=== PATIENT | female | born 1935 | race Caucasian/White ===

== ENCOUNTER → 2017-03-25 | Outpatient (CLI) | payer OTHER ==
[~2017-03-25] MED LIST: ATIVAN0.5 MG PO; HYDROCODONE-AP1 EAC6 PO; IBUPROFEN 600600 M1 PO; LISINOPRIL10 MG PO; NORCO 5-325 TA1 EACH PO; TUMS PO; ZOCOR20 MG PO
[2017-03-25 11:17] LABS: ABSOLUTE EOSINOPHILS 0.1 thou/uL (0.0-0.7); ABSOLUTE MONOCYTES 0.5 thou/uL (0.0-1.2); ABSOLUTE NEUTROPHILS 4.4 thou/uL (1.6-8.1); BASOPHILS 0.6 %; EOSINOPHILS 1.4 %; HEMATOCRIT 39.7 % (37.0-47.0); HEMOGLOBIN 13.3 gm/dL (12.0-15.0); LYMPHOCYTES 17.1 %; MCH 29.2 pg (26.0-34.0); MCHC 33.5 g/dL (28.0-37.0); MCV 87.2 fL (80.0-100.0); MONOCYTES 7.6 %; MPV 7.1 fl. (7.2-11.1); NUCLEATED RBCS 0 /100WBC; PLATELET COUNT* 264 thou/uL (150-400); POLYS 73.3 %; RBC 4.55 mil/uL (4.20-5.00); RDW-CV 13.2 % (10.5-14.5)
[2017-03-25 11:36] LABS: ALBUMIN 3.5 g/dL (3.4-5.0); CALCIUM 8.9 mg/dL (8.5-10.1); CREATININE 0.7 mg/dL (0.6-1.3); POTASSIUM 4.2 mmol/L (3.5-5.1); TOTAL BILIRUBIN 0.4 mg/dL (<0.1-1.0); TOTAL PROTEIN 6.6 g/dL (6.4-8.2)
== END ==
LOC: M.LAB 10:55
PROVIDERS: Specialist
DX: Z01.818 Encounter for other preprocedural examination (principal); I12.9 Hypertensive chronic kidney disease with stage 1 through stage 4 chronic kidney disease, or unspecified chronic kidney disease; N18.4 Chronic kidney disease, stage 4 (severe); N81.11 Cystocele, midline

== ENCOUNTER 2017-03-30 05:59 | Day surgery (SDC) | payer OTHER ==
[~2017-03-30] VITALS: Ht 167.6 cm; Wt 62.6 kg
--- NOTE | ~2017-03-30 | OP ---
[address] [address] OPERATIVE REPORT Name: JUAN LUIS ESCALANTE [id number] Admission: 03/30/17 Attend Phys: Branden Pierce MD Discharge: 03/31/17 Date of : 39 Report #: [id number] THIS REPORT FOR: //name// For details of the operative report, please see Dr. Pierce's post operative note. By: [facility] Records Staff [facility] /LYNDA
[~2017-03-30 05:59] MED LIST changes: -HYDROCODONE-AP1 EAC6 PO; -IBUPROFEN 600600 M1 PO; -NORCO 5-325 TA1 EACH PO
[2017-03-30 06:48] LABS: HEMATOCRIT 39.7 % (37.0-47.0); HEMOGLOBIN 13.5 gm/dL (12.0-15.0); MCHC 34.1 g/dL (28.0-37.0); MCV 84.9 fL (80.0-100.0); MPV 7.2 fl. (7.2-11.1); RBC 4.67 mil/uL (4.20-5.00); RDW-CV 13.2 % (10.5-14.5); WBC 4.8 thou/uL (4.0-11.0)
[2017-03-30 06:56] LABS: CALCIUM 8.9 mg/dL (8.5-10.1); CREATININE 0.8 mg/dL (0.6-1.3); POTASSIUM 3.7 mmol/L (3.5-5.1)
[2017-03-30 07:01] LABS: ALBUMIN 3.3 g/dL (3.4-5.0); TOTAL BILIRUBIN 0.3 mg/dL (<0.1-1.0); TOTAL PROTEIN 6.8 g/dL (6.4-8.2)
[2017-03-30 07:13] VITALS: BP 101/57
--- NOTE | 2017-03-30 10:38 | EKG ---
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
[2017-03-30 11:16] LABS: HEMATOCRIT 34.8 % (37.0-47.0); HEMOGLOBIN 11.7 gm/dL (12.0-15.0)
[2017-03-30 11:22] LABS: POTASSIUM 4.2 mmol/L (3.5-5.1)
[2017-03-30 12:09] VITALS: BP 134/49
--- NOTE | 2017-03-30 12:14 | NUR ---
PATIENT TRANSFERRED FROM PACU TO ROOM 113. ALERT AND ORIENTED. CANVASS MANAGER EDUCATION GIVEN. ICE CHIPS PROVIDED BY PACU STAFF. IVF INFUSING. SCD'S IN PLACE. O2 SAT 98% ON 2L. CONT PULSE OX IN PLACE. PETERSEN DRAINING YELLOW URINE. ORIENTED TO ROOM AND ENVIROMENT. CALL LIGHT WITHIN REACH. WILL CONTINUE TO MONITOR.
[2017-03-30 15:59] VITALS: BP 118/57
--- NOTE | 2017-03-30 16:42 | NUR ---
PATIENT REMAINS ALERT AND ORIENTED. PAIN CONTROLLED WITH DILAUDID NETEZZA ARCHITECT. MILD NAUSEA- WANTS TO TRY LIQUIDS TONIGHT. DR. LE CURRENTLY ROUNDING AND NOTIFIED OF REQUEST TO EAT. PETERSEN IN PLACE WITH YELLOW URINE. VAGINAL PACKING IN PLACE- TO BE REMOVED IN AM. DAUGHTER AT BEDSIDE. CALL LIGHT WITHIN REACH. WILL CONTINUE TO MONITOR.
[2017-03-30 20:35] VITALS: BP 141/71
[2017-03-31 00:33] VITALS: BP 148/64
[2017-03-31 04:06] VITALS: BP 146/69
--- NOTE | 2017-03-31 05:24 | NUR ---
PATIENT ALERT AND ORIENTED. VITALS STABLE. ON 2L OF OXYGEN. 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 SCHEDULED TORADOL GIVEN. VOMITED MINIMAL AMOUNT OF CLEAR EMESIS. REGLAN GIVEN. ICE CHIPS GIVEN SPARINGLY THROUGH THE NIGHT. PETERSEN TO DEPENDENT DRAINAGE. FLUIDS INFUSING PER ORDER. HOURLY ROUNDS. NURSING WILL CONTINUE TO MONITOR.
[2017-03-31 08:39] VITALS: BP 136/72
[2017-03-31 09:22] LABS: CALCIUM 8.7 mg/dL (8.5-10.1); CREATININE 0.7 mg/dL (0.6-1.3); POTASSIUM 4.6 mmol/L (3.5-5.1)
--- NOTE | 2017-03-31 12:34 | S ---
[address] [address] SURGICAL PATH RPT PROCEDURE Name: ERIN ESCALANTE Chely Room: [address]R.#: [id number] Admission: 03/30/17 Date of : 39 Discharge: Report #: [id number] Path Case #: [id number] PATHOLOGY REPORT COLLECTION DATE: 03/30/2017 RECEIVED DATE: 03/30/2017 SUBMITTING PHYS: Dr. Branden Pierce OTHER PHYS: Dr. José Miguel Cee SPECIMEN(S) RECEIVED: A.Uterus and cervix * * * * * * * * * * * * FINAL DIAGNOSIS: Uterus and cervix: 25 gram uterus (including cervix and without bilateral adnexa) with: Endometrium: - Atrophic pattern, negative for hyperplasia and atypia. Myometrium: - Prominent medial calcification of blood vessels. Cervix: - Atrophic features negative for dysplasia. (WOO:db; 03/31/2017) PATHOLOGIST: Dillon Rosario M.D. REPORT ELECTRONICALLY SIGNED BY: Dillon Rosario M.D. DATE/TIME: 03/31/2017 12:33 * * * * * * * * * * * * GROSS PATHOLOGY: Received in formalin labeled "Erin Escalante, uterus and cervix" and consists of a 25 g, 6.3 x 3.5 x 2.4 cm uterus/cervix. The serosa is smooth, glistening, and red boothe to brown. The ectocervix measures 2.3 cm in diameter. The ectocervical mucosa is glistening and pink. The squamocolumnar junction is slightly roughened and possibly ulcerated. The endocervix is glistening and boothe. The endometrial cavity measures 2.7 x 2.3 cm and contains one mL of tenacious clear to cloudy fluid. The endometrium is atrophic, boothe, glistening, and averages 0.1 cm thick. The myometrium averages 1.0 cm thick and appears grossly unremarkable. Hose Inspector sections are submitted A1-A6. A1-A2 cervix A3 CHRISTIN, transverse section A4-A6 endomyometrium (ALFA; 03/30/2017) [place] [address] SURGICAL PATH RPT PROCEDURE Name: AVAERIN Room: [address] M.R.#: [id number] Admission: 03/30/17 Date of : 39 Discharge: Report #: [id number] Path Case #: [id number] CLINICAL HISTORY: Uterine prolapse, cystocele midline INITIAL CPT CODE(S): A; 92771 Professional services performed by [facility] at [facility], [facility] [place] [address]. Technical services performed by [facility] at [address] [place] [address], [address], [place] [address]. [facility] [address] [address] PHONE: [phone] DIRECTOR: Logan Bolivar M.D. * * * END OF REPORT * * *
[2017-03-31 14:15] VITALS: BP 136/72
[2017-03-31] MEDS ORDERED: HYDROCODONE-AP1 EAC6 PO (14:17)
[2017-03-31] MEDS ORDERED: NORCO 5-325 TA1 EACH PO (14:28)
[2017-03-31] MEDS ORDERED: IBUPROFEN 600600 M1 PO (14:38)
--- NOTE | 2017-03-31 15:22 | NUR ---
PATIENT VERY ANXIOUS TO DISCHARGE. CALLED DR. SOARES AND DR. LE AND ORDERS TO DC PATIENT. PATIENT DID NOT WANT TO DISCUSS DC INSTRUCTIONS SHE SAID SHE KNEW ALL OF THEM, AND WOULD READ THEM AT HOME. IV REMOVED. PATIENT AMBULATED TO CAR WITH DAUGHTER. SCRIPT FOR MOTRIN SENT TO PHARMACY, AND SCRIPT FOR VICODIN GIVEN TO PATIENT AND DAUGHTER.
== END 2017-03-31 15:25 | disposition home or self-care (01) ==
LOC: EDBD → M.SUR → M.TBA 10:59 → M.ORTHSURG 11:49 → M.SUR 12:38
PROVIDERS: Internal Medicine; Specialist
DX: N81.4 Uterovaginal prolapse, unspecified (principal); N81.11 Cystocele, midline; I10 Essential (primary) hypertension; E78.5 Hyperlipidemia, unspecified; F41.8 Other specified anxiety disorders; Z79.899 Other long term (current) drug therapy; Z79.891 Long term (current) use of opiate analgesic; Z98.890 Other specified postprocedural states